=== PATIENT | female | born 1995 | race Caucasian/White ===

== ENCOUNTER 2016-12-01 16:40 | Emergency (ER) | payer SELFPAY ==
[~2016-12-01] VITALS: Ht 152.4 cm; Wt 56.0 kg
[2016-12-01 16:47] VITALS: Ht 152.4 cm; Wt 56.0 kg
== END 2016-12-01 19:16 | disposition left against medical advice (07) ==
LOC: FTE 16:40
DX: Z53.21 Procedure and treatment not carried out due to patient leaving prior to being seen by health care provider (principal)

== ENCOUNTER 2016-12-30 08:54 | Day surgery (SDC) | payer OTHER ==
[~2016-12-30] VITALS: Ht 152.4 cm; Wt 54.4 kg
[2016-12-30 09:29] VITALS: Ht 152.4 cm; Wt 54.4 kg
[2016-12-30 10:00] VITALS: BP 115/81; PULSE 77; RESP 18
[2016-12-30] MEDS ORDERED: MIDAZOLAM 1 MG/ML 2 ML INJ ONE ×3 (10:34→10:35)
[2016-12-30] MEDS ORDERED: FENTAnyl 50 MCG/ML VIAL ONE (10:35)
--- NOTE | 2016-12-30 12:50 | GILP ---
DATE OF PROCEDURE: 12/30/2016 PROCEDURE PERFORMED: Colonoscopy with biopsy. INDICATION: A 21-year-old female undergoing this procedure for rectal bleeding for the last 1 month . The purpose is to evaluate the colon and rule out colitis and also find out the source of her ble eding. The risk of the procedure, related and unrelated complications, sedative risks, alternatives discussed and informed consent was obtained. DESCRIPTION OF PROCEDURE: Patient was placed in the left recumbent position was given Versed 4 mg a nd fentanyl 100 mg. The first 2 mg in 50 mL did not go into the vein. It was infiltrating IV. Aft er obtaining sedation, scope was passed with much ease into rectum. Proctitis identified, extends u p to 5 to 7 cm. Scope was advanced all the way into the cecum and finally into terminal ileum. Ter [place] ileum up to 2 feet was normal. Rest of the colon appeared normal. Clarity and cleanliness wa s good. Retroversion done. Proctitis confirmed. Three biopsies obtained to confirm the diagnosis. patient also had small hemorrhoids. IMPRESSION: 1. Ulcerative proctitis. 2. Normal all the way into terminal ileum. 3. Small hemorrhoids. PLAN: Have a Canasa suppository on a regular basis and hopefully this will resolve her symptoms. Dictated By: NIC STINSON/MARKUS Conf#: [id number] DID#: [id number]
== END 2016-12-30 11:32 | disposition home or self-care (01) ==
LOC: GIL 08:54
PROVIDERS: ATTEND Internal Medicine Gastroenterology
DX: K52.89 Other specified noninfective gastroenteritis and colitis (principal); K51.20 Ulcerative (chronic) proctitis without complications; K64.9 Unspecified hemorrhoids
CPT/HCPCS: 45380; 84703; 88305; J2250; J3010; Z7610